=== PATIENT | male | born 1950 | race Caucasian/White ===

== ENCOUNTER 2024-02-01 08:30 | Inpatient (IN) | payer OTHER ==
[~2024-02-01] VITALS: Ht 185.4 cm; Wt 113.3 kg
[2024-02-01] MEDS: SODIUM CHLORIDE 0.9% 1000ML BAG (SEPSIS BOLUS) IV ONE (09:07)
[2024-02-01] MEDS: PIPERACILLIN/TAZO 3.375G/50ML 50 ML IV ONE (09:07)
[2024-02-01 09:12] LABS: BASOPHILS % 0.4 % (0.0-2.0); EOSINOPHILS % 1.1 % (0.0-5.0); HEMOGLOBIN. 13.6 g/dL (14.0-18.0); MEAN CORPUSCULAR HEMOGLOBIN 30.8 pg (28.0-32.0); MEAN CORPUSCULAR HGB CONC 33.3 g/dL (31.0-37.0); MEAN CORPUSCULAR VOLUME 92.6 fL (80.0-94.0); MEAN PLATELET VOLUME 8.1 fl (7.4-10.4); NEUTROPHILS % 82.5 % (40.0-76.0); PLATELET 268 x1000/uL (130-400); RED BLOOD CELL COUNT 4.42 mill/uL (4.7-6.1); RED CELL DISTRIBUTION WIDTH 13.4 % (11.6-14.6); WHITE BLOOD COUNT 12.2 x1000/uL (4.5-11.0)
[2024-02-01 09:26] LABS: CHLORIDE 109 mEq/L (98-107); POTASSIUM 3.4 mEq/L (3.5-5.1); SODIUM 141 mEq/L (136-145)
[2024-02-01 09:27] LABS: CARBON DIOXIDE 15 mEq/L (21-32)
[2024-02-01 09:31] LABS: CREATININE 0.9 mg/dL (0.6-1.3)
[2024-02-01 09:32] LABS: GLUCOSE 99 mg/dL (70-105); UREA NITROGEN BLOOD 18 mg/dL (9-23)
[2024-02-01 09:34] LABS: ALANINE AMINOTRANSFERASE 15 IU/L (10-49); ALBUMIN 4.3 g/dL (3.2-4.8); ASPARTATE AMINOTRANSFERASE 16 IU/L (<34); BILIRUBIN TOTAL 0.2 mg/dL (0.1-1.0); PROTEIN TOTAL 6.4 g/dL (6.0-8.3)
[2024-02-01 09:35] LABS: D-DIMER 9.87 mg/L FEU (<0.50); INR 0.9; PROTHROMBIN TIME 10.3 sec (9.6-11.0)
[2024-02-01 10:00] LABS: LACTIC ACID 8.7 mmol/L (0.4-2.0)
[2024-02-01 10:04] LABS: BILIRUBIN DIRECT < 0.1 mg/dL (<=3.0); TROPONIN I HIGH SENSITIVITY < 4 ng/L (3.0-53)
[2024-02-01] MEDS: NOREPINEPHRINE 8MG/250ML PMX 250 ML IV ONE (10:25)
[2024-02-01] MEDS: NOREPINEPHRINE 8 MG in DEXT 5% WATER 242 ML IV STA (10:25)
[2024-02-01] MEDS: SODIUM CHLORIDE 0.9% 1,000 ML IV SCH (12:00)
[2024-02-01] MEDS ORDERED: ONDANSETRON HCL 4MG/2ML INJ IV PRN (12:00)
[2024-02-01] MEDS ORDERED: ACETAMINOPHEN 325MG TABLET PO PRN ×2 (12:00)
[2024-02-01] MEDS ORDERED: GUAIFENESIN 200MG/10ML SUGAR FREE UDC PO PRN (12:00)
[2024-02-01] MEDS ORDERED: IPRATROPIUM/ALBUTEROL 0.5-3(2.5)MG/3ML NEB HHN PRN (12:00)
[2024-02-01] MEDS ORDERED: CLONIDINE 0.1MG TABLET PO PRN (12:00)
[2024-02-01] MEDS: POTASSIUM CHLORIDE 20MEQ TABLET SR PO NR (12:00)
[2024-02-01] MEDS ORDERED: DOCUSATE SODIUM 100MG CAPSULE PO PRN (12:00)
[2024-02-01] MEDS ORDERED: MAGNESIUM/ALUMINUM HYDROXIDE/SIMETHICONE 30ML UDC PO PRN (12:00)
[2024-02-01 12:46] LABS: T4 FREE 1.19 ng/dL (0.89-1.76); THYROID STIMULATING HORMONE 1.53 uIU/mL (0.55-4.78)
[2024-02-01] MEDS: IOHEXOL-350 100 ML BOTTLE ONE (13:00)
[2024-02-01] MEDS: LIDOCAINE HCL 1% 10 MG/ML 10ML VIAL ONE (13:00)
[2024-02-01 14:10] LABS: CLARITY URINE CLEAR (CLEAR); COLOR URINE YELLOW (YELLOW); GLUCOSE URINE NEGATIVE (NEGATIVE); KETONES URINE TRACE (NEGATIVE); LEUKOCYTE ESTERASE URINE NEGATIVE (NEGATIVE); NITRITE URINE NEGATIVE (NEGATIVE); OCCULT BLOOD URINE NEGATIVE (NEGATIVE); PROTEIN URINE NEGATIVE (NEGATIVE); UROBILINOGEN URINE 0.2 E.U./dL (0.2-1.0)
[2024-02-01 14:11] LABS: *AMPHETAMINES SCREEN URINE NEGATIVE (NEGATIVE); *BARBITURATES SCREEN URINE NEGATIVE (NEGATIVE); *BENZODIAZEPINES SCREEN URINE NEGATIVE (NEGATIVE); *COCAINE SCREEN URINE NEGATIVE (NEGATIVE); CANNABINOID URINE SCREEN NEGATIVE (NEGATIVE); ECSTASY MDMA SCREEN URINE NEGATIVE (NEGATIVE); METHADONE URINE SCREEN NEGATIVE (NEGATIVE); OPIATES URINE SCREEN NEGATIVE (NEGATIVE); PHENCYCLIDINE URINE SCREEN NEGATIVE (NEGATIVE)
[2024-02-01] MEDS: PIPERACILLIN/TAZO 3.375G/50ML 50 ML IV SCH (15:20)
[2024-02-01] MEDS: ENOXAPARIN 30MG/0.3ML SYR SUBCUT SCH (18:09)
[2024-02-01 20:00] VITALS: BP 132/84; PULSE 96; RESP 18; TEMP 97.8
[2024-02-01] MEDS ORDERED: ATORVASTATIN CALCIUM 40MG TABLET PO SCH ×2 (21:00→21:30)
[2024-02-01 22:22] VITALS: BP 148/94; PULSE 99; RESP 18; TEMP 98
[2024-02-01 22:50] VITALS: BP 148/94; PULSE 99; RESP 18; TEMP 98.3
[2024-02-01] MEDS: ATORVASTATIN CALCIUM 40MG TABLET PO SCH (22:57)
[2024-02-01] MEDS ORDERED: RAMI10CA68 PO (23:16)
[2024-02-01] MEDS ORDERED: AMLO10TA80 MT (23:16)
[2024-02-02 00:08] VITALS: BP 138/64; PULSE 103; RESP 20; TEMP 97.8
[2024-02-02 04:00] VITALS: BP 124/91; PULSE 85; RESP 16; TEMP 98.2
[2024-02-02 05:50] LABS: BASOPHILS % 0.6 % (0.0-2.0); EOSINOPHILS % 2.1 % (0.0-5.0); HEMATOCRIT. 42.1 % (42.0-52.0); HEMOGLOBIN. 14.1 g/dL (14.0-18.0); LYMPHOCYTES % 16.5 % (20.0-50.0); MEAN CORPUSCULAR HEMOGLOBIN 30.7 pg (28.0-32.0); MEAN CORPUSCULAR HGB CONC 33.6 g/dL (31.0-37.0); MEAN CORPUSCULAR VOLUME 91.6 fL (80.0-94.0); MEAN PLATELET VOLUME 8.1 fl (7.4-10.4); MONOCYTES % 13.6 % (2.0-8.0); NEUTROPHILS % 67.2 % (40.0-76.0); PLATELET 235 x1000/uL (130-400); RED BLOOD CELL COUNT 4.59 mill/uL (4.7-6.1); RED CELL DISTRIBUTION WIDTH 13.6 % (11.6-14.6); WHITE BLOOD COUNT 9.8 x1000/uL (4.5-11.0)
[2024-02-02 06:04] LABS: CARBON DIOXIDE 24 mEq/L (21-32); CHLORIDE 106 mEq/L (98-107); POTASSIUM 3.6 mEq/L (3.5-5.1); SODIUM 139 mEq/L (136-145)
[2024-02-02 06:06] LABS: CALCIUM 8.9 mg/dL (8.7-10.4)
[2024-02-02 06:09] LABS: CREATININE 0.6 mg/dL (0.6-1.3)
[2024-02-02 06:11] LABS: GLUCOSE 99 mg/dL (70-105); UREA NITROGEN BLOOD 9 mg/dL (9-23)
[2024-02-02 08:00] VITALS: BP 136/85; PULSE 94; RESP 20; TEMP 97
[2024-02-02 12:00] VITALS: BP 125/74; PULSE 79; RESP 18; TEMP 97.5
[2024-02-02] MEDS: VANCOMYCIN 2,000 MG in DEXT 5% WATER 500 ML IV NR (12:30)
[2024-02-02 16:00] VITALS: BP 127/84; PULSE 76; RESP 18; TEMP 99.1
[2024-02-02 20:00] VITALS: BP 147/88; PULSE 89; RESP 19; TEMP 98.6
[2024-02-02] MEDS: VANCOMYCIN 1GM/200ML PMX (BAXTER) IV SCH (21:19)
[2024-02-03 00:15] VITALS: BP 150/87; PULSE 84; RESP 20; TEMP 98.4
[2024-02-03] MEDS ORDERED: VANCOMYCIN 1.25GM PMX (XELLIA) 250 ML IV SCH (03:00)
[2024-02-03 04:00] VITALS: BP 149/77; PULSE 84; RESP 16; TEMP 97.5
[2024-02-03 07:09] LABS: BASOPHILS % 0.8 % (0.0-2.0); EOSINOPHILS % 4.2 % (0.0-5.0); HEMATOCRIT. 39.1 % (42.0-52.0); HEMOGLOBIN. 13.1 g/dL (14.0-18.0); LYMPHOCYTES % 15.7 % (20.0-50.0); MEAN CORPUSCULAR HEMOGLOBIN 30.5 pg (28.0-32.0); MEAN CORPUSCULAR HGB CONC 33.5 g/dL (31.0-37.0); MEAN CORPUSCULAR VOLUME 91.2 fL (80.0-94.0); MEAN PLATELET VOLUME 8.5 fl (7.4-10.4); MONOCYTES % 13.4 % (2.0-8.0); NEUTROPHILS % 65.9 % (40.0-76.0); PLATELET 203 x1000/uL (130-400); RED BLOOD CELL COUNT 4.28 mill/uL (4.7-6.1); RED CELL DISTRIBUTION WIDTH 13.5 % (11.6-14.6); WHITE BLOOD COUNT 8.8 x1000/uL (4.5-11.0)
[2024-02-03 07:25] LABS: CALCIUM 8.6 mg/dL (8.7-10.4); CARBON DIOXIDE 24 mEq/L (21-32); CHLORIDE 106 mEq/L (98-107); POTASSIUM 3.3 mEq/L (3.5-5.1); SODIUM 138 mEq/L (136-145)
[2024-02-03 07:31] LABS: CREATININE 0.6 mg/dL (0.6-1.3); GLUCOSE 91 mg/dL (70-105); UREA NITROGEN BLOOD 12 mg/dL (9-23)
[2024-02-03 08:00] VITALS: BP 139/84; PULSE 91; RESP 20; TEMP 98.2
[2024-02-03] MEDS: POTASSIUM CHLORIDE 20MEQ/PACKET PO NR (08:36)
[2024-02-03] MEDS ORDERED: TOPUD PO (13:51)
[2024-02-03] MEDS ORDERED: LIP40 PO (13:51)
[2024-02-03] MEDS ORDERED: METR375C2 PO (13:51)
[2024-02-03] MEDS ORDERED: SULF1TAB48 PO (13:51)
[2024-02-03] MEDS ORDERED: AMLO5TAB88 PO (13:52)
[2024-02-03 18:04] VITALS: BP 130/80; PULSE 90; TEMP 98; O2SAT 98
== END 2024-02-03 19:15 | disposition home or self-care (01) | DRG 872 ==
LOC: ER 09:15 → 5WST 10:50 → EDBEDREQTM 11:20 → EDBEDREQ 11:20 → EDBEDREQSVC 11:20 → 7WST 22:20
PROVIDERS: ADMIT Hospitalist; ATTEND Hospitalist
PROC: 02HV33Z Insertion of Infusion Device into Superior Vena Cava, Percutaneous Approach (ICD-10-PCS; principal; 2024-02-01)
PROC: B548ZZA Ultrasonography of Superior Vena Cava, Guidance (ICD-10-PCS; 2024-02-01)
DX: A41.9 Sepsis, unspecified organism (principal); E87.20 Acidosis, unspecified; R57.9 Shock, unspecified; L03.115 Cellulitis of right lower limb; E87.6 Hypokalemia; K57.30 Diverticulosis of large intestine without perforation or abscess without bleeding; L97.512 Non-pressure chronic ulcer of other part of right foot with fat layer exposed; F10.10 Alcohol abuse, uncomplicated; I10 Essential (primary) hypertension; Z20.822 Contact with and (suspected) exposure to COVID-19; S92.302A Fracture of unspecified metatarsal bone(s), left foot, initial encounter for closed fracture; X58.XXXA Exposure to other specified factors, initial encounter; Y93.89 Activity, other specified; Y92.89 Other specified places as the place of occurrence of the external cause; Y99.8 Other external cause status; Z79.899 Other long term (current) drug therapy
CPT/HCPCS: 36415; 36573; 71045; 71275; 73620; 73630; 74174; 80048; 80061; 80076; 80305; 80320; 81003; 82550; 83036; 83605; 83880; 84145; 84439; 84443; 84484; 84550; 85025; 85379; 87426; 93005; 93306; 93923; 99285; C1725; J1650; J2543; J3370; J3490; J7030; J7060; Q9967; G0480